=== PATIENT | male | born 1985 | race Caucasian/White ===

== ENCOUNTER 2024-07-05 16:56 | Emergency (ER) | payer BC ==
[~2024-07-05] VITALS: Ht 185.4 cm; Wt 170.0 kg
[2024-07-05 17:01] VITALS: BP 158/101; PULSE 112; TEMP 97.5; O2SAT 95
[2024-07-05] MEDS ORDERED: BENZ-111 PO (18:43)
[2024-07-05 19:04] VITALS: RESP 16
== END 2024-07-05 19:04 | disposition home or self-care (01) ==
LOC: ER 16:57
DX: R05.1 Acute cough (principal); U09.9 Post COVID-19 condition, unspecified; Z79.899 Other long term (current) drug therapy
CPT/HCPCS: 71045; 99283